=== PATIENT | male | born 1985 | race African-American/Black ===

== ENCOUNTER 2016-05-24 18:18 | Emergency (ER) | payer OTHER ==
--- NOTE | ~2016-05-24 | CT71 ---
[facility] A Service [facility] RADIOLOGY TEXT RESULTS PATIENT: NICHOLAS MALLORY LOCATION: SED : 85 UNIT #: [id number] AGE: [address]: JYOTI ELDER PA-C SEX: M ORDER DR: [id number] [address] [id number] E MR#: [id number] Acc #: [id number] NAME: NICHOLAS MALLORY : 1985 SEX: M STUDY DATE/TIME: 05/24/2016 18:23 UNIT: SED ROOM: STUDY DESCRIPTION: CT Head Wo Contrast Attending Physician: Jyoti Elder Pa-C Ordering Physician: Physician Non-Staff Primary Care Physician: Wallace Virk A.P.R.N. MEDICAL IMAGING REPORT This report is preliminary unless electronic signature is present. EXAM Noncontrast head CT. HISTORY Frontal headaches x1 week worse today with nasal drainage. States he thinks he has a sinus infection. This CT exam was performed with one or more of the following radiation dose reduction techniques: automatic exposure control, adjustment of mA and/or kV according to patient size, and iterative reconstruction. FINDINGS Axial noncontrast imaging of the brain demonstrates the brain parenchyma to be normal. No evidence of mass, mass effect or midline shift. No hemorrhage or abnormal extraaxial fluid collections identified. Ventricles, sulci and basilar cisterns appear normal. Bony calvarium, skull base and mastoids appear normal. There is right ethmoid sinus opacification, complete opacification of the right visualized maxillary sinus as well as extensive right sphenoid sinus opacification. In the appropriate setting this would be compatible acute sinusitis. 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 IMPRESSION 1. No acute intracranial abnormality identified. 2. Suspected right maxillary, right ethmoid and right frontal sinus disease possibly representing acute sinusitis given the extensive opacification. 1. Dictated by.Zeferino Shah M.D. [facility] A Service of [facility] RADIOLOGY TEXT RESULTS PATIENT: NICHOLAS MALLORY LOCATION: [facility] [place] : [birth year] UNIT #: [id number] AGE: [address]: JYOTI ELDER PA-C SEX: M ORDER DR: THIS IS AN ELECTRONICALLY VERIFIED REPORT Domenica Shah M.D. at 05/25/2016 7:29 AM Miguel TD: 05/25/2016 07:00 JOB #: [id number] MEDICAL IMAGING REPORT Page 1 of 1
[~2016-05-24 18:18] MED LIST: NO MEDICATIONS; VOLTAREN75 MG PO; ZITHROMAX
== END 2016-05-24 19:00 | disposition home or self-care (01) ==
LOC: SED 18:18
DX: J01.90 Acute sinusitis, unspecified (principal); I10 Essential (primary) hypertension
CPT/HCPCS: 70450; 87651; 96372; 99284; J1885